=== PATIENT | female | born 1960 | race Caucasian/White ===

== ENCOUNTER 2016-11-19 14:01 | Emergency (ER) | payer OTHER ==
[~2016-11-19] VITALS: Ht 157.5 cm; Wt 87.5 kg
[~2016-11-19 14:01] MED LIST: ASPIRIN81 M1 PO; DESYREL100 MG PO; FUROSEMIDE20 MG PO; GABAPENTIN600 MG PO; HYDROCHLOROTH12.5 M3 PO; IBUPROFEN800 MG PO; K-DUR10 MEQ PO; LISINOPRIL40 MG PO; LYRICA50 MG PO; METOPROLOL TART50 MG PO; MOTRIN800 MG PO; MULTIVITAMIN W1 EACH PO; NAPROXEN500 M2 PO; OMEPRAZOLE20 MG PO; OXYCODONE-APAP1 EACH PO; OXYCONTIN15 MG PO; PERCOCET 10/1 TABLET PO; POTASSIUM CHLO10 ME3 PO; PRISTIQ100 MG PO; PRISTIQ50 MG PO; PROMETHAZINE HC25 M1 PO; PROTONIX40 MG PO; RANITIDINE HCL150 MG PO; RISPERDAL0.5 MG PO; SERTRALINE HCL50 MG PO; STOOL SOFTENER1 EAC2 PO; TRAZODONE HCL100 MG PO; TRAZODONE HCL50 MG PO; VITAMIN D PO; VITAMIN D-32000 UNI2 PO; WELLBUTRIN XL150 MG PO; ZANTAC150 MG PO
[2016-11-19 14:17] VITALS: BP 107/81
[2016-11-19] MEDS ORDERED: MOTRIN800 MG PO (15:47)
[2016-11-19] MEDS ORDERED: LIDODERM 5% P1 PATCH TD (15:47)
[2016-11-19] MEDS ORDERED: FLEXERIL10 MG PO (15:47)
== END 2016-11-19 16:15 | disposition home or self-care (01) ==
LOC: EXP 14:01 → EME 14:01 → EXP 16:15
DX: S80.01XA Contusion of right knee, initial encounter (principal); S39.012A Strain of muscle, fascia and tendon of lower back, initial encounter; N20.0 Calculus of kidney; M17.11 Unilateral primary osteoarthritis, right knee; W01.0XXA Fall on same level from slipping, tripping and stumbling without subsequent striking against object, initial encounter; Y93.E5 Activity, floor mopping and cleaning; I10 Essential (primary) hypertension; Z87.442 Personal history of urinary calculi; Z86.73 Personal history of transient ischemic attack (TIA), and cerebral infarction without residual deficits
CPT/HCPCS: 72100; 73564; 81003; 99281; 99284